=== PATIENT | female | born 1995 | race African-American/Black ===

== ENCOUNTER 2017-05-31 19:46 | Outpatient (CLI) | payer BC, OTHER ==
--- NOTE | 2017-05-31 20:31 | RAD ---
RADIOGRAPH OF CHEST TWO VIEW SERIES 05/31/17 COMPARISON: 04/20/15 INDICATION: History of chicken pox. FINDINGS: There are metallic artifacts overlying the chest wall bilaterally. Lungs are clear. The cardiac silho uette is normal in size. Osseous structures are nonacute in appearance. IMPRESSION: There is no lobar consolidation. POS: C
== END 2017-05-31 19:47 | disposition home or self-care (01) ==
LOC: RAD 19:46
PROVIDERS: ATTEND Student in an Organized Health Care Education/Training Program
DX: Z34.92 Encounter for supervision of normal pregnancy, unspecified, second trimester (principal); B01.9 Varicella without complication; J06.9 Acute upper respiratory infection, unspecified; Z3A.23 23 weeks gestation of pregnancy
CPT/HCPCS: 71046

== ENCOUNTER 2017-08-20 11:03 | Inpatient (IN) | payer BC, OTHER ==
--- NOTE | 2017-08-20 11:29 | PDOC.LDHP ---
Labor and Delivery H&P Chief complaint: other (spotting, cramping, ?LOF) HPI: 22 y/o G1 at 35w3d, patient of Dr. Caruso, presents with spotting, cramping, and ?LOF. Denies heavy VB, ctx, or decreased FM. ROS neg for HEENT, cv, pulm, gi, gu, neuro, psych, skin, musculoskeletal, or constitutional symptoms other than mentioned above. OB History Details: First Current complications: none Past Medical History: Hypothyroidism HSV Current medications: pre- vitamins, other (levothyroxine) Previous surgical history: none Allergies/Adverse Reactions: Allergies Allergy/AdvReac Type Severity Reaction Status Date / Time No Known Allergies Allergy Unverified 08/20/17 11:52 Social history: none - Physical Exam Vital signs reviewed and normal: yes General: NAD, resting Lungs: nonlabored breathing Abdomen: gravid Extremeties: no edema FHT: category 1 [place] contractions every: 3-5 mins - Vaginal Exam cm dilated: 2 Effacement: 50% Station: -2 - OB Labs Blood type: O RH: positive - Assessment 22 y/o G1 at 35w3d with vaginal bleeding. status reassuring but has occasional late decelerations. LUIS EDUARDO stable. - Plan -: Will place on observation. Continue IV fluids and EFM. Dr. Caruso notified.
[2017-08-20] MEDS ORDERED: Lactated Ringer's 1,000 ML IV SCH (13:15)
[2017-08-20] MEDS: Betamet Acet/Betamet Na Ph 30 MG/5 ML VIAL IM SCH (13:22)
[2017-08-20] MEDS ORDERED: Acetaminophen 500 MG TAB PO PRN (15:38)
[2017-08-20] MEDS ORDERED: Promethazine HCl 25 MG/ML VIAL IM PRN (15:38)
[2017-08-20] MEDS ORDERED: Ondansetron HCl/PF 4 MG/2 ML Vial IVP PRN (15:38)
[2017-08-20] MEDS: Lactated Ringer's 1,000 ML IV SCH ×2 (15:40→22:27)
[2017-08-20 16:04] LABS: Mean Corpuscular HGB CONC 33.7 g/dL (32.0-36.0); Mean Corpuscular Hemoglobin 28.2 pg (27.0-31.0); Mean Corpuscular Volume 83.6 fl (81.0-99.0); Mean Platelet Volume 8.6 fL (7.4-10.4); Platelet Count 168 thou/uL (130-400); RBC Distribution Width 11.7 % (11.5-14.5); White Blood Cell (WBC) Count 7.8 thou/uL (4.8-10.8)
[2017-08-20 16:36] LABS: Syphilis Antibody Nonreactive (Nonreactive); Syphilis Antibody Index 0.07 S/CO (<1.00 Non-Reactive)
[2017-08-20 16:37] LABS: HBSAg Index 0.13 S/CO (0-0.99); Hep B Surf Ag Non-Reactive S/CO (NonReactive)
[2017-08-21] MEDS: Lactated Ringer's 1,000 ML IV SCH ×2 (06:41→15:06)
--- NOTE | 2017-08-21 08:03 | PDOC.LDPN ---
Labor & Delivery Progress Note - Subjective Subjective: painful contractions (q5min) - Objective Vital signs reviewed and normal: yes General: NAD Uterine fundus: non tender Dilation: 3 Effacement: 75% Station: -1 FHT: category 1 [place] contractions every: q5min -: PTL at 35w, poss ROM (watery bloody fluid on glove) but no gross leakage on pad. Neg SSE, Nl LUIS EDUARDO yesterday. Amnisure not valid since bleeding. Cont observation, IVF prn pain meds. Start PCN for GBS ppx. Complete steroid course today. Change to inpt status.
[2017-08-21] MEDS ORDERED: Diphenoxylate HCl/Atropine Tablet PO PRN (08:28)
[2017-08-21] MEDS ORDERED: Carboprost 250 MCG/ML AMP IM PRN (08:28)
[2017-08-21] MEDS ORDERED: Lidocaine 1% (PF) 30 ML VIAL SC PRN (08:28)
[2017-08-21] MEDS ORDERED: Misoprostol 200 MCG TAB PR PRN (08:28)
[2017-08-21] MEDS ORDERED: HYDROcodone/Acetaminophen 5/325 mg Tablet PO PRN ×3 (08:28→22:43)
[2017-08-21] MEDS ORDERED: LR / Pitocin 40 units/1000 ml 1,000 ML IV PRN (08:28)
[2017-08-21] MEDS ORDERED: Ibuprofen 800 MG TAB PO PRN (08:28)
[2017-08-21] MEDS ORDERED: Methylergonovine 0.2 MG/ML VIAL IM PRN (08:28)
[2017-08-21] MEDS ORDERED: Penicillin G Potassium 5 MILL.UNITS in Sodium Chloride 0.9% 100 ML IVPB SCH (08:30)
[2017-08-21] MEDS: Penicillin G 2.5 MILL.units 2.5 MILL.UNITS in Premix Bag 1 BAG IVPB SCH ×2 (12:56→17:20)
[2017-08-21] MEDS: Betamet Acet/Betamet Na Ph 30 MG/5 ML VIAL IM SCH (13:01)
--- NOTE | 2017-08-21 13:54 | PDOC.LDPN ---
Labor & Delivery Progress Note - Subjective Subjective: painful contractions ( q 5min) - Objective Vital signs reviewed and normal: yes General: NAD Uterine fundus: non tender Dilation: 4 Effacement: 90% Station: -1 (BBOW) FHT: category 2, late decelerations ( x 1) [place] contractions every: -7min - Assessment (1) labor in third trimester with delivery Code(s): O60.14X0 - LABOR THIRD TRI W DELIVERY THIRD TRI, UNSP Current Visit: Yes Status: Acute Qualifiers: Fetus number: single or unspecified fetus Qualified Code(s): O60.14X0 - labor third trimester with delivery third trimester, not applicable or unspecified -: PTL at 35wk. Cont IVF, no indication for tocolysis. s/p BMZ x 2. Cont PCN for GBS ppx. FHT Cat 2- late decel x 1, otherwise good variability. Positioning. BV on VP3- flagyl Cont L&D care, epidural as desired. Will augment in am if unchanged.
[2017-08-21] MEDS ORDERED: DISCONTINUE ALL PREVIOUS NARCOTICS FS SCH (19:00)
[2017-08-21] MEDS ORDERED: Bupivacaine 0.5% 20 ML, fentaNYL Citrate/PF 400 MCG in Sodium Chloride 0.9% 72 ML EPIDURAL SCH (19:00)
--- NOTE | 2017-08-21 21:19 | PDOC.OPDEL ---
OB Operative/Delivery Note Delivery Dr/Surgeon: [place]ady Assist: n/a Pre-Delivery Diagnosis: active labor ( at 35wk) Procedure/Post Delivery Dx: spontaneous vaginal delivery Weeks gestation: 35 Anesthesia: none - Findings A Sex: female Weight: 5 lb 6 oz - 1 min: 8 - 5 min: 8 - Additional Findings/Plan Placenta delivered: spontaneous Repaired Obstetrical Laceration: none Estimated blood loss: 400 Post delivery plan: routine recovery
[2017-08-21] MEDS ORDERED: Preparation H Ointment 28 GM TUBE PR PRN (22:43)
[2017-08-21] MEDS ORDERED: LR / Pitocin 40 units/1000 ml 1,000 ML IV SCH (22:43)
[2017-08-21] MEDS ORDERED: Milk Of Magnesia 30 ML UDCUP PO PRN (22:43)
[2017-08-21] MEDS ORDERED: diphenhydrAMINE 25 MG CAP PO PRN (22:43)
[2017-08-21] MEDS ORDERED: Lanolin Ointment 7 GM TUBE TOP PRN (22:43)
[2017-08-21] MEDS ORDERED: Bisacodyl 10 MG SUPP PR PRN (22:43)
[2017-08-21] MEDS ORDERED: Benzocaine/Menthol 20-0.5% 60 ML CAN TOP PRN (22:43)
[2017-08-22] MEDS: Ibuprofen 800 MG TAB PO SCH ×3 (06:02→23:02)
[2017-08-22 06:13] LABS: Mean Corpuscular HGB CONC 33.6 g/dL (32.0-36.0); Mean Corpuscular Hemoglobin 28.1 pg (27.0-31.0); Mean Corpuscular Volume 83.6 fl (81.0-99.0); Mean Platelet Volume 7.2 fL (7.4-10.4); Platelet Count 154 thou/uL (130-400); RBC Distribution Width 11.8 % (11.5-14.5); Red Blood Cell (RBC) Count 3.55 mill/uL (4.20-5.40); White Blood Cell (WBC) Count 15.2 thou/uL (4.8-10.8)
--- NOTE | 2017-08-22 08:06 | PDOC.PP ---
Post Progress Note Post Day #: 1 PO intake tolerated: yes Flatus: yes Ambulation: yes Vital Signs (12 hours) Temp Pulse Resp BP 08/22/17 04:05 98.1 F 71 18 113/57 L 08/22/17 01:50 98.4 F 74 18 107/61 08/22/17 00:30 98.1 F 91 20 08/22/17 00:28 98.1 F 91 20 109/62 08/21/17 23:00 98.7 F 81 18 132/74 08/21/17 22:30 98.9 F 80 18 128/73 Weight Admit Weight 151 lb Weight 4.974 oz - Physical Examination General: NAD Cardiovascular: RRR Respiratory: non-labored breathing Abdominal: no distention, appropriately TTP Fundus firm & at: below umbilicus Extremities: negative homans (B) Neurological: no gross focal deficits Psychiatric: A&Ox3 Result Diagrams: 08/22/17 05:46 Additional Labs: Post Labs Blood Type O POSITIVE 08/20/17 13:30 Hep Bs Antigen Non-Reactive S/CO (NonReactive) 08/20/17 13:30 (1) (spontaneous vaginal delivery) Code(s): O80 - ENCOUNTER FOR FULL-TERM UNCOMPLICATED DELIVERY Status: Acute - Assessment/Plan PPD1 VSSAF Meeting PP expectations in NICU for prematurity Plan for d/c home tomorrow
[2017-08-22] MEDS ORDERED: Adacel (T-DAP) 0.5 ML VIAL IM ONE (09:00)
[2017-08-22] MEDS: Ferrous Sulfate 325 MG TAB PO SCH ×2 (09:26→19:09)
[2017-08-22] MEDS: Prenatal Vitamin 1 TAB PO SCH (09:27)
[2017-08-22] MEDS: Docusate Calcium (SURFAK) 240 MG CAP PO SCH ×2 (09:27→21:12)
[2017-08-22] MEDS: Penicillin G 2.5 MILL.units 2.5 MILL.UNITS in Premix Bag 1 BAG IVPB SCH (11:17)
[2017-08-23] MEDS: Ibuprofen 800 MG TAB PO SCH (06:27)
[2017-08-23 08:54] VITALS: BP 133/80
[2017-08-23 08:56] VITALS: TEMP 97.9
[2017-08-23] MEDS: Prenatal Vitamin 1 TAB PO SCH (09:35)
[2017-08-23] MEDS: Docusate Calcium (SURFAK) 240 MG CAP PO SCH (09:35)
[2017-08-23] MEDS: Ferrous Sulfate 325 MG TAB PO SCH (09:39)
--- NOTE | 2017-08-23 10:36 | PDOC.PP ---
Post Progress Note Post Day #: 2 PO intake tolerated: yes Flatus: yes Ambulation: yes Vital Signs (12 hours) Temp Pulse Resp BP 08/23/17 08:00 97.9 F 59 L 18 133/80 Weight Admit Weight 151 lb Weight 4.974 oz - Physical Examination General: NAD Cardiovascular: RRR Respiratory: non-labored breathing Abdominal: no distention, appropriately TTP Fundus firm & at: umb-2 Skin: no rash Psychiatric: normal affect Result Diagrams: 08/22/17 05:46 Additional Labs: Post Labs Blood Type O POSITIVE 08/20/17 13:30 Hep Bs Antigen Non-Reactive S/CO (NonReactive) 08/20/17 13:30 (1) labor in third trimester with delivery Code(s): O60.14X0 - LABOR THIRD TRI W DELIVERY THIRD TRI, UNSP Status: Acute Qualifiers: Fetus number: single or unspecified fetus Qualified Code(s): O60.14X0 - labor third trimester with delivery third trimester, not applicable or unspecified - Assessment/Plan PPD2 s/p PTSVD Doing well, no issues Rh pos RImm DC home FU 6 wk
== END 2017-08-23 11:20 | disposition home or self-care (01) | DRG 775 ==
LOC: L&D/OP 11:03 → OBSVTOIN 20:13 → L&D 20:13 → 3SW 08-21 22:23
PROVIDERS: ADMIT Student in an Organized Health Care Education/Training Program; ATTEND Student in an Organized Health Care Education/Training Program
PROC: 10E0XZZ Delivery of Products of Conception, External Approach (ICD-10-PCS; principal; 2017-08-21)
PROC: 10907ZC Drainage of Amniotic Fluid, Therapeutic from Products of Conception, Via Natural or Artificial Opening (ICD-10-PCS; 2017-08-21)
DX: O60.14X0 Preterm labor third trimester with preterm delivery third trimester, not applicable or unspecified (principal); E03.9 Hypothyroidism, unspecified; Z37.0 Single live birth; Z3A.35 35 weeks gestation of pregnancy; O99.284 Endocrine, nutritional and metabolic diseases complicating childbirth; Z79.899 Other long term (current) drug therapy
CPT/HCPCS: 36415; 59025; 76815; 85027; 86780; 86850; 86900; 86901; 87081; 87340; 87480; 87510; 87660; 88307; 99285; J0702; J2001; J2540; J3010; J3490; J7050

== ENCOUNTER 2022-01-02 09:32 | Emergency (ER) | payer SELFPAY ==
[2022-01-02 10:09] LABS: #Eosinphils 0.1 thou/uL (0.0-0.7); #Lymphocytes 1.4 thou/uL (1.20-3.40); #Monocytes 0.2 thou/uL (0.11-0.59); #Neutrophils 2.3 thou/uL (1.40-6.50); %Basophils 0.4 % (0.0-1.0); %Eosinophils 2.9 % (0.0-10.0); %Monocytes 5.1 % (0.0-10.0); %Neutrophils 56.7 % (42.0-75.0); Hemoglobin 13.5 g/dL (12.0-16.0); Mean Corpuscular HGB CONC 32.9 g/dL (32.0-36.0); Mean Corpuscular Hemoglobin 28.5 pg (27.0-31.0); Mean Corpuscular Volume 86.7 fL (78.0-98.0); Mean Platelet Volume 7.6 fL (7.4-10.4); Platelet Count 182 thou/uL (130-400); RBC Distribution Width 11.4 % (11.5-14.5); Red Blood Cell (RBC) Count 4.74 mill/uL (4.20-5.40)
[2022-01-02 10:29] LABS: BHCG - Serum Negative (NEGATIVE); Pregs Control Background? CLEAR/WHITE (CLR/WHITE); Pregs Control Bar Appear? YES (CONTROL BAR)
[2022-01-02 10:31] LABS: ALT (SGPT) Less than 7 U/L (8-55); AST (SGOT) 13 U/L (5-34); Albumin 4.3 g/dL (3.5-5.0); Alkaline Phosphatase 77 U/L (40-110); Anion Gap 11 mmol/L (10-20); BUN (Urea Nitrogen) 13 mg/dL (7.0-18.7); Bilirubin, Total 0.6 mg/dL (0.2-1.2); Calc. Creatinine Clearance 0 mL/min (70-130); Calcium 9.5 mg/dL (7.8-10.44); Carbon Dioxide 25 mmol/L (22-29); Chloride 106 mmol/L (98-107); Estimated GFR 79; Glucose 106 mg/dL (70-105); Potassium 3.8 mmol/L (3.5-5.1); Protein, Total 8.3 g/dL (6.0-8.3); Sodium 138 mmol/L (136-145)
[2022-01-02 12:37] LABS: Bilirubin Negative (Negative); Blood, Urine Negative (Negative); Clarity Clear (Clear); Glucose, Urine (Dipstick) Normal (Negative); Ketone, Urine Negative (Negative); Leukocyte Negative Leu/uL (Negative); Nitrite Negative (Negative); Protein, Urine (Dipstick) Negative (Neg-Trace); Specific Gravity, Urine 1.013 (1.002-1.036); Urobilinogen Normal mg/dL (Less than 2); pH, Urine 6.5 (5.0-9.0)
== END 2022-01-02 10:57 | disposition home or self-care (01) ==
LOC: ERS 09:32
DX: R42 Dizziness and giddiness (principal); E03.9 Hypothyroidism, unspecified
CPT/HCPCS: 36415; 80053; 81003; 84703; 85025; 93005; 94760

== ENCOUNTER 2022-01-22 20:20 | Emergency (ER) | payer SELFPAY ==
[2022-01-22] MEDS ORDERED: Ondansetron ODT 4 MG TAB ONE (21:06)
[2022-01-22 21:09] LABS: #Eosinphils 0.1 thou/uL (0.0-0.7); #Lymphocytes 2.3 thou/uL (1.20-3.40); #Monocytes 0.3 thou/uL (0.11-0.59); #Neutrophils 2.5 thou/uL (1.40-6.50); %Basophils 0.8 % (0.0-1.0); %Eosinophils 2.8 % (0.0-10.0); %Monocytes 6.5 % (0.0-10.0); Hemoglobin 13.1 g/dL (12.0-16.0); Mean Corpuscular HGB CONC 34.4 g/dL (32.0-36.0); Mean Corpuscular Volume 87.1 fL (78.0-98.0); Mean Platelet Volume 7.7 fL (7.4-10.4); Platelet Count 177 thou/uL (130-400); RBC Distribution Width 11.5 % (11.5-14.5); Red Blood Cell (RBC) Count 4.35 mill/uL (4.20-5.40); White Blood Cell (WBC) Count 5.3 thou/uL (4.8-10.8)
[2022-01-22 21:11] LABS: Bacteria/HPF None Seen HPF (None Seen); Bilirubin Negative (Negative); Blood, Urine Negative (Negative); Clarity Clear (Clear); Glucose, Urine (Dipstick) Normal (Negative); Ketone, Urine Negative (Negative); Leukocyte Negative Leu/uL (Negative); Mucous/LPF Rare LPF (<2+); Nitrite Negative (Negative); Protein, Urine (Dipstick) 70 mg/dL (Neg-Trace); RBC/HPF 0-3 HPF (0-3); Specific Gravity, Urine 1.036 (1.002-1.036); Squamous Epithelial 0-3 HPF (0-3); Urobilinogen Normal mg/dL (Less than 2); WBC/HPF 0-3 HPF (0-3); pH, Urine 5.5 (5.0-9.0)
[2022-01-22 21:12] LABS: Pregnancy Test - Urine (BHCG) Negative (Negative); Pregu Control Background? CLEAR/WHITE (CLR/WHITE); Pregu Control Bar Appear? YES (CONTROL BAR); Specific Gravity 1.036 (1.002-1.036)
[2022-01-22 21:31] LABS: ALT (SGPT) 9 U/L (8-55); AST (SGOT) 14 U/L (5-34); Albumin 4.2 g/dL (3.5-5.0); Alkaline Phosphatase 75 U/L (40-110); Anion Gap 10 mmol/L (10-20); BUN (Urea Nitrogen) 13 mg/dL (7.0-18.7); Bilirubin, Total 1.2 mg/dL (0.2-1.2); Calc. Creatinine Clearance 0 mL/min (70-130); Calcium 9.6 mg/dL (7.8-10.44); Carbon Dioxide 28 mmol/L (22-29); Chloride 103 mmol/L (98-107); Estimated GFR 85; Glucose 111 mg/dL (70-105); Potassium 3.5 mmol/L (3.5-5.1); Protein, Total 8.2 g/dL (6.0-8.3); Sodium 137 mmol/L (136-145)
== END 2022-01-22 22:03 | disposition home or self-care (01) ==
LOC: ERS 20:20
DX: R11.0 Nausea (principal); E03.9 Hypothyroidism, unspecified
CPT/HCPCS: 36415; 80053; 81003; 81015; 81025; 84443; 85025; 93005; Q0162